=== PATIENT | male | born 1985 | race Two or more races ===

== ENCOUNTER 2022-11-17 20:00 | Emergency (ER) | payer BC, OTHER ==
[2022-11-17 20:06] VITALS: BP 108/72; PULSE 100; RESP 18; TEMP 98.2; BMI 33.4
[2022-11-17] MEDS ORDERED: DEXAMETHASONE SOD PHOSPHATE 10 MG/1 ML VIAL PO ONE (21:08)
[2022-11-17] MEDS ORDERED: IBUPROFEN 600 MG TABLET (FP) PO ONE ×2 (21:08→21:10)
[2022-11-17] MEDS ORDERED: DEXAMETHASONE SOD PHOSPHATE 10 MG/1 ML VIAL ONE (21:10)
== END 2022-11-17 22:07 | disposition home or self-care (01) ==
LOC: JERFT 20:00
DX: J02.9 Acute pharyngitis, unspecified (principal); Z20.822 Contact with and (suspected) exposure to COVID-19
CPT/HCPCS: 0241U-QW; 87651; 99283-25; J1100